=== PATIENT | male | born 1940 | race Caucasian/White ===

== ENCOUNTER 2019-10-23 11:43 | Outpatient (CLI) | payer OTHER, SELFPAY ==
--- NOTE | ~2019-10-23 | PE_ITS ---
EXAMINATION: PET skull to mid thigh DATE: 10/23/2019 14:44 INDICATION: Non-Hodgkin's lymphoma restaging TECHNIQUE: Blood glucose level was 115 mg/dL. 9.4 mCi of 18-fluorodeoxyglucose (18-FDG) was administe red i.v. Low dose computed tomography (CT) images were acquired from the base of the brain to the pro ximal thighs for attenuation correction and anatomic localization. Positron emission tomography (PET) images were acquired in the same distribution beginning 54 minutes after injection. COMPARISON: 04/24/2019, 11/28/2018 FINDINGS: Head/neck: No abnormal FDG uptake is identified. Uptake in the oral cavity without suspicious CT eleno elate is likely physiologic. There are no pathologically enlarged lymph nodes. Chest: No abnormal FDG uptake is identified. Again noted is mild dependent atelectasis and atelectasi s of the lingula. There is no pleural effusion or pneumothorax. There is stable cardiomegaly. There i s calcified coronary artery atherosclerosis. No pathologically enlarged thoracic lymph nodes are iden tified. A left subclavian Port-A-Cath ends with its tip in the superior vena cava. Abdomen/pelvis/proximal thighs: Physiologic FDG activity is present in the bowel and urinary tract. N o abnormal FDG uptake is identified. There are no pathologically enlarged abdominal or pelvic lymph n odes. The spleen, pancreas, gallbladder, and adrenal glands are normal. The kidneys are unremarkable. There is no free intraperitoneal gas or evidence of bowel obstruction. There is a right inguinal her eufemia containing nonobstructed small bowel. Musculoskeletal: No abnormal FDG uptake is identified. IMPRESSION: 1. No lymphadenopathy to suggest recurrent disease. 2. Right inguinal hernia containing nonobstructed small bowel. Reviewed, dictated and finalized at location A.
[2019-10-23 12:37] LABS: Glucose Point of Care 115 (65-105)
== END 2019-10-23 11:44 | disposition home or self-care (01) ==
PROVIDERS: Visit Provider Internal Medicine Medical Oncology
DX: C85.90 Non-Hodgkin lymphoma, unspecified, unspecified site (principal); Z92.21 Personal history of antineoplastic chemotherapy; Z76.89 Persons encountering health services in other specified circumstances; K40.90 Unilateral inguinal hernia, without obstruction or gangrene, not specified as recurrent
CPT/HCPCS: 78815; A9552

== ENCOUNTER 2020-12-28 10:41 | Outpatient (CLI) | payer OTHER, SELFPAY ==
--- NOTE | ~2020-12-28 | PE_ITS ---
EXAMINATION: PET skull to mid thigh DATE: 12/28/2020 12:31 INDICATION: Non-Hodgkin's lymphoma. TECHNIQUE: Blood glucose level was 102 mg/dL. 9.350 mCi of 18-fluorodeoxyglucose (18-FDG) was adminis tered i.v. Low dose computed tomography (CT) images were acquired from the base of the brain to the p roximal thighs for attenuation correction and anatomic localization. Automated exposure control was e mployed. Dose-length product (DLP) was 1122 mGy-cm. Positron emission tomography (PET) images were ac quired in the same distribution. COMPARISON: PET CT 10/23/2019 FINDINGS: Head/neck: There is increased activity in the nose, oral cavity, major salivary glands, and oropharyn x without CT correlate, likely physiologic. There are no pathologically enlarged lymph nodes. There a re changes of anterior fusion procedure in cervical spine. Chest: The lungs demonstrate mild atelectasis. No pleural effusion. Cardiomegaly is noted. There are coronary artery calcifications. There are changes of coronary artery bypass grafting. No pericardial effusion. There is a left subclavian port with tip in superior vena cava. There are no pathologically enlarged lymph nodes. Abdomen/pelvis/proximal thighs: The liver, gallbladder, spleen, pancreas, adrenal glands, and kidneys are normal. There are no dilated loops of bowel. The prostate is mildly enlarged. There are no patho logically enlarged lymph nodes. There is no free intraperitoneal fluid. There are changes of right in guinal hernia repair. There is no osseous malignancy. IMPRESSION: 1. No evidence of lymphoma. Reviewed, dictated and finalized at location B. IMPRESSION: 1. No evidence of lymphoma.
[2020-12-28 11:10] LABS: Glucose Point of Care 102 mg/dl (65-105)
== END 2020-12-28 10:42 | disposition home or self-care (01) ==
DX: Z03.89 Encounter for observation for other suspected diseases and conditions ruled out (principal); C85.93 Non-Hodgkin lymphoma, unspecified, intra-abdominal lymph nodes
CPT/HCPCS: 78815; 82948; A9552

== ENCOUNTER 2022-01-12 01:28 | Day surgery (SDC) | payer OTHER, SELFPAY ==
--- NOTE | 2022-01-09 15:35 | PC.NURSE ---
Report to the Outpatient Waiting Room, entrance under the green pavilion located off [facility], at time __1200 on date _01/12/22 . OR Time: __1400 . - You and your visitor will be asked a series of questions to screen for COVID 19 for your protection. - Only one visitor is allowed at this time. - The patient visitor is requested to leave or wait in car when not with patient. - A mask is required within the hospital. Patients may have clear liquids (water, carbonated beverages, clear teas, apple juice) until 3 hours prior to surgery with a maximum of 20 ounces. - No food from midnight until time of surgery - Infants may have breast milk until 4 hours before surgery, infant formula 6 hours prior to surgery. - Children will be allowed to drink immediately following surgery. If applicable, please bring a bottle or sippy cup to assist with drinking. Juice, water, soda, and popsicles are readily available. For infants on formula, please bring formula the day of surgery. Pacifiers are allowed. Take the following medications with a SIP of water the morning of surgery: AMLODIPINE Medications to discontinue per physician NONE Date to take last dose Please no make-up, nail belarusian, hairspray, perfume, deodorant, or body powder the day of surgery. No jewelry (including any body piercings) or valuables the day of surgery, leave them at home. Please take a shower or bath the night before, or the morning of, surgery with an antibacterial soap. Wear comfortable, loose fitting clothing. Children are encouraged to wear pajamas. - Jewelry must be removed prior to entering the operating room. Rings and piercings that are not removed may be cut off. - The hospital will not accept responsibility for valuables. - Please leave all valuables, including medications, at home the day of surgery. If you are going home after surgery, a licensed commercial truck driver must drive you home. - NO public transportation without another adult. - We recommend that an adult stay with you for 24 hours following discharge. - We also recommend that you do not drive, make important decision, drink alcoholic beverages, or take any drugs that were not prescribed by your health care provider for at least 24 hours after your discharge time. For Pediatric surgeries, we recommend two adults accompany the child home (only one inside the building at this time). Follow any additional instructions given to you from your surgeon. If you or anyone in your household have experienced Covid symptoms in the past week, please notify your surgeon or the nurse liaison at the phone number below for possible testing. Telephone instructions given to _PATIENT and asked if any additional questions and then verbalized understanding. Patient advised to call surgeon office or pre surgery nurse liaison [phone] if any additional questions.
[2022-01-09 15:37] VITALS: BMI 30.7
--- NOTE | 2022-01-10 11:02 | PM.SD2 ---
Same Day Admit/Disch: HPI History of Present Illness Chief complaint: Port-A-Cath no longer needed Narrative: Stephen Quintero is a 81 year old male who 3 years ago was diagnosed with B-cell lymphoma. A Port-A-Cath was placed in chemotherapy was administered. His Port-A-Cath is no longer needed and he is taken to surgery now for removal. [facility] Past Medical History Medical History (Updated 01/12/22 @ 15:37 by Oracio Lo MD) CAD (coronary artery disease) Crohn's disease HTN (hypertension) Hyperlipidemia Non-Hodgkin lymphoma Obesity Surgical History Surgical History (Updated 01/11/22 @ 09:14 by Abiel Owens MD) S/P CABG (coronary artery bypass graft) Family History Family History (Updated 05/12/19 @ 08:44 by DOCTOR UNKNOWN) Sibling Family history of malignant neoplasm of breast in first degree relative Mother Family history of malignant neoplasm of kidney Social History Social History Smoking status: Never smoker Living arrangements: alone Spiritual care concerns: No Same Day Admit/Disch: Med Pre-admit Medications Home Medications Medication Instructions Recorded Confirmed Type amlodipine 5 mg tablet 1 tablet PO DAILY 01/09/22 01/12/22 History aspirin 81 mg tablet 81 mg PO DAILY 01/09/22 01/12/22 History doxycycline hyclate 50 mg capsule 1 cap PO DAILY ROSACEA 01/09/22 01/12/22 History gabapentin 400 mg capsule 1 cap PO PRN PRN Pain 01/09/22 01/12/22 History rosuvastatin 10 mg tablet 10 tablet PO HS 01/09/22 01/12/22 History tamsulosin 0.4 mg capsule 1 cap PO DAILY 01/09/22 01/12/22 History hydrocodone 5 mg-acetaminophen 325 1 - 2 tablet PO Q6H PRN pain #7 01/12/22 Rx mg tablet tabs Exam Const: General: comfortable, no acute distress, alert and awake HENMT: Head: normocephalic and atraumatic Mouth: Yes Normal oral and palatal mucosa present Eyes: Conjunctivae: conjunctivae normal Pupils: Equal, round and reactive pupils present EOM: EOMs intact bilaterally Neck: Neck: normal visual inspection, no lymphadenopathy and nontender Resp: Effort & Inspection: normal respiratory effort Auscultation: clear to auscultation bilaterally Cardio: Rate: regular rate Rhythm: regular rhythm Heart sounds: no gallops, no murmurs and no rubs GI: Inspection: non-distended GI Palp: Yes Soft to palpation, No Tenderness to palpation present (GI), No Hepatomegaly present and No Splenomegaly present Skin: Lesions: no lesions Rashes: no rashes Neuro: General: no focal motor deficits and CN's II-XI intact bilaterally Cranial nerves: Yes Equal, round and reactive pupils present, Yes Bilaterally intact EOM present, Yes facial symmetry and Yes Midline tongue present Speech: normal speech Motor exam (neuro): 5/5 motor strength present throughout and Motor abnormalities not present Extrem: General: no clubbing, cyanosis or edema and edema Psych: Affect: normal affect Thought process: Normal thought process present Insight: Good insight present (Psych) DS: Summary Time Spent with Patient Time attestation: Total time spent providing and/or coordinating discharge services: DS: Admitting Diagnosis Discharge Date 01/12/2022 Admitting Diagnosis B-cell lymphoma Port-A-Cath no longer needed - plan to remove Port-A-Cath under anesthesia as an outpatient. The procedure the risks the benefits have been discussed. All questions were answered. He agrees to go ahead. Discharge Plan Discharge Patient Disposition: Home, Self-Care Discharge Instructions: Ambulate 3-4 x per day and as tolerated. No lifting over 15 lbs left arm for 1 week. May bathe or shower. Stairs are OK. May drive a car in 2 days. Remove surgical adhesive (glue) over incision when it becomes loose and easy to grasp. No need for surgical f/u unless problems No sports (golf) for one week. May apply ice pack to area 1st 24hrs if desired. Stand Alone Forms: General Discharge Instructions Fol
--- NOTE | 2022-01-11 09:13 | WPDANESEPPF ---
Anes - Initial Pre Proc Eval Procedure: Operation Date: 01/12/22 14:00 Proposed Procedures p Removal Nathanael Cath - Oracio Lo MD Date/Time: 01/11/22 09:13 Surgeon: Oracio Lo MD Pre Op Diagnosis: Port-A-Cath no longer needed Patient Data Age: 81 Gender: M Height: 1.78 m Weight: 97.1 kg Allergies Allergy/AdvReac Type Severity Reaction Status Date / Time clopidogrel Allergy Unknown DOESN'T Verified 01/12/22 12:30 MAKE ME FEEL VERY WELL propranolol Allergy Unknown LOW HEART Verified 01/12/22 12:30 RATE Home Medications Medication Instructions Recorded Confirmed Type amlodipine 5 mg tablet 1 tablet PO DAILY 01/09/22 01/12/22 History aspirin 81 mg tablet 81 mg PO DAILY 01/09/22 01/12/22 History doxycycline hyclate 50 mg capsule 1 cap PO DAILY ROSACEA 01/09/22 01/12/22 History gabapentin 400 mg capsule 1 cap PO PRN PRN Pain 01/09/22 01/12/22 History rosuvastatin 10 mg tablet 10 tablet PO HS 01/09/22 01/12/22 History tamsulosin 0.4 mg capsule 1 cap PO DAILY 01/09/22 01/12/22 History Patient hx anesthesia problems: none Family hx anesthesia problems: none Results Review: All pre-operative results and documents have been reviewed as part of the pre-operative evaluation. [facility] Past Medical History Medical History (Updated 01/11/22 @ 09:14 by Abiel Owens MD) CAD (coronary artery disease) Crohn's disease HTN (hypertension) Hyperlipidemia Non-Hodgkin lymphoma Obesity Surgical History Surgical History (Updated 01/11/22 @ 09:14 by Abiel Owens MD) S/P CABG (coronary artery bypass graft) Family History Family History (Updated 05/12/19 @ 08:44 by DOCTOR UNKNOWN) Sibling Family history of malignant neoplasm of breast in first degree relative Mother Family history of malignant neoplasm of kidney Social History Social History Smoking status: Never smoker Living arrangements: alone Spiritual care concerns: No Anes - Eval Final PreProcedure Day of Procedure 01/11/22 09:13 Patient weight: obese Heart: regular rate and rhythm Lungs: clear to auscultation and normal air movement Airway: Mallampati scale class II Neurological: alert and oriented Last oral intake: >/= 8 hours ASA classification: III Emergent: no Anesthetic plan: proceed Anesthesia type and monitoring: general GIVS Results Review: All pre-operative results and documents have been reviewed as part of the pre-operative evaluation. Informed Consent: The patient's anesthetic plan and its attendant risks and benefits were discussed with the patient/family/POA. Questions were solicited and answers provided to the satisfaction of the patient/family/POA.
[2022-01-12 12:23] VITALS: BP 161/66; PULSE 58; RESP 18; TEMP 36.3; O2SAT 100
[2022-01-12] MEDS: LACTATED RINGERS 1,000 ML 30 ML IV CONT (12:40)
--- NOTE | 2022-01-12 14:07 | WPDHPUPDATE1 ---
History and Physical Update Update Date/Time: 01/12/22 14:07 History and Physical has been reviewed, including an updated exam of the patient. There are NO changes in the patient's condition. Risks, benefits, and alternatives have been discussed and questions answered. Patient agrees to proceed with procedure.
[2022-01-12] MEDS: ceFAZolin 2 GM/D5W 50 ML 2 GM/50 ML BAG IVPB (14:27)
[2022-01-12 15:15] VITALS: BP 110/51; PULSE 52; RESP 12; O2SAT 96
--- NOTE | 2022-01-12 15:23 | P.OP_ITS ---
Procedure Note - Detailed Date of Procedure 01/12/22 Pre-op Diagnosis Lymphoma, Port-A-Cath no longer needed Post-op Diagnosis Same Procedure Performed Removal left subclavian Port-A-Cath Surgeon Oracio Lo MD [employer] Anesthesia MAC and Local (0.5% Marcaine) Indications Patient had a Port-A-Cath placed previously for chemotherapy for lymphoma. He no longer requires chemotherapy and has been recommended to have his Port-A-Cath removed. He is taken to surgery now for removal. Findings Intact vortex Port-A-Cath Description of Procedure Patient was checked in the preoperative holding area. He was then taken to surgery and anesthesia was introduced. The left subclavian area was prepped and draped. An ellipse was drawn around the previous scar from Port-A-Cath placement. Local was infiltrated into the anticipated incision. An ellipse of skin including the old scar was excised. Cautery was used for hemostasis. Dissection was carried down through the subcutaneous to the Port-A-Cath tubing. We then dissected towards the Port-A-Cath reservoir. There was a fibrous sheath around the reservoir as usual. The sheath was opened and we carefully dissected the Port-A-Cath free from the sheath. Some silk suture had to be removed to extricate the Port-A-Cath from the pocket. Some of the fibrous sheath was excised as well. Cautery was used for hemostasis. The Port-A-Cath was then removed. There was back bleeding from the tunnel. I clamped the fibrous sheath forming the tunnel. I then used a 4-0 Vicryl mattress suture to tie off the sheath as it exited from the upper aspect of the pocket. I removed the clamp and there was no further bleeding. I cut out the excess sheath. I infiltrated additional local into the Port-A-Cath pocket and areas of dissection. The wound was then closed with interrupted 4-0 Vicryl suture for the subcutaneous layer. Interrupted 3-0 Monocryl subcuticular skin sutures were then placed. Gentle pressure was held on the incision to stop any skin bleeding. The wound was then dressed with Exofin surgical adhesive. The patient was awakened and taken to recovery in good condition. Sponge and needle counts were correct x2. Estimated Blood Loss -5 Drains No Packing No Pathology None sent Complications No immediate complications Condition Stable Disposition Same day [facility] Billing Surgery - Charge Forward: Surgery Billing (Removal Port-A-Cath)
[2022-01-12 15:41] VITALS: BP 125/57; PULSE 57; RESP 12; O2SAT 96
== END 2022-01-12 16:09 | disposition home or self-care (01) ==
PROVIDERS: Visit Provider Surgery
PROC: (CPT 36589; principal; 2022-01-12 14:00)
DX: Z45.2 Encounter for adjustment and management of vascular access device (principal); Z85.72 Personal history of non-Hodgkin lymphomas; I25.10 Atherosclerotic heart disease of native coronary artery without angina pectoris; I10 Essential (primary) hypertension; E78.5 Hyperlipidemia, unspecified; K50.90 Crohn's disease, unspecified, without complications; Z95.1 Presence of aortocoronary bypass graft; Z79.82 Long term (current) use of aspirin; E66.9 Obesity, unspecified; Z68.30 Body mass index [BMI] 30.0-30.9, adult
CPT/HCPCS: 36590; J0690; J2704; J3010; J7120

== ENCOUNTER 2022-02-02 08:56 | Outpatient (CLI) | payer OTHER, SELFPAY ==
--- NOTE | ~2022-02-02 | PE_ITS ---
EXAMINATION: PET skull to mid thigh DATE: 02/02/2022 10:57 INDICATION: Non-Hodgkin's lymphoma TECHNIQUE: Blood glucose level was 105 mg/dL. 9.585 mCi of 18-fluorodeoxyglucose (18-FDG) was adminis tered i.v. Low dose computed tomography (CT) images were acquired from the base of the brain to the p roximal thighs for attenuation correction and anatomic localization. Positron emission tomography (PE T) images were acquired in the same distribution beginning 52 minutes after injection. The dose-lengt h product (DLP) was 990.83 mGy-cm. COMPARISON: 12/28/2020 FINDINGS: Head/neck: FDG uptake in the oral cavity and salivary glands without suspicious CT correlate is likel y physiologic. No abnormal FDG uptake is identified. There are no pathologically enlarged cervical ly mph nodes. Chest: No abnormal FDG uptake is identified. No pathologically enlarged thoracic lymph nodes are iden tified. Cardiomegaly is noted. The lungs are free of focal airspace opacities. No pleural effusion or pneumothorax. Dependent atelectasis is noted. There is calcified coronary artery atherosclerosis. Abdomen/pelvis/proximal thighs: Physiologic FDG activity is present in the bowel and urinary tract. N o abnormal FDG uptake is identified. The liver, spleen, pancreas, gallbladder, and adrenal glands are normal. The kidneys are unremarkable. No pathologically enlarged abdominal or pelvic lymph nodes are identified. There is no free intraperitoneal gas or evidence of bowel obstruction. Changes of right inguinal hernia repair are noted. There is mild circumferential wall thickening of the urinary bladde r, likely related to chronic outlet obstruction. Musculoskeletal: No abnormal FDG uptake is identified. There are changes of anterior fusion in the ce rvical spine. Severe lumbar spondylosis is noted. IMPRESSION: 1. No evidence of lymphoma. Reviewed, dictated and finalized at location F. IMPRESSION: 1. No evidence of lymphoma.
[2022-02-02 09:39] LABS: Glucose Point of Care 105 mg/dl (65-105)
== END 2022-02-02 08:57 | disposition home or self-care (01) ==
PROVIDERS: Visit Provider Internal Medicine Medical Oncology
DX: C85.90 Non-Hodgkin lymphoma, unspecified, unspecified site (principal)
CPT/HCPCS: 78815; A9552